=== PATIENT | female | born 1970 | race Caucasian/White ===

== ENCOUNTER 2020-03-14 06:06 | Day surgery (SDC) | payer BC ==
[~2020-03-14] VITALS: Ht 162.6 cm; Wt 90.0 kg
[2020-03-14] MEDS ORDERED: SODIUM CHLORIDE 0.9% 1,000 ML IV SCH (06:30)
[2020-03-14 06:33] VITALS: BP 133/83
[2020-03-14] MEDS ORDERED: LOSA1TAB2 PO (06:53)
[2020-03-14] MEDS ORDERED: METF500T17 PO (06:53)
[2020-03-14] MEDS ORDERED: POTA20TA6 PO (06:53)
[2020-03-14] MEDS ORDERED: ATEN25TA PO (06:53)
[2020-03-14] MEDS ORDERED: PLEASE ENTER ALLERGIES MC SCH (07:00)
[2020-03-14 07:12] LABS: BASOPHILS # (AUTO) 0.04 x10^3/uL (0-0.1); BASOPHILS % (AUTO) 1 % (0-1); EOSINOPHILS % (AUTO) 1 % (1-7); LYMPHOCYTES # (AUTO) 3.01 x10^3/uL (1-3.4); LYMPHOCYTES % (AUTO) 38 % (22-44); MD NO; MEAN CORPUSCULAR HEMOGLOBIN 30.3 pg (27.0-34.8); MEAN CORPUSCULAR HGB CONC 33.2 g/dL (32.4-35.8); MEAN PLATELET VOLUME 8.1 fL (7.4-10.4); MONOCYTES # (AUTO) 0.53 x10^3/uL (0.2-0.8); MONOCYTES % (AUTO) 7 % (2-9); NEUTROPHILS # (AUTO) 4.19 x10^3/uL (1.8-6.8); NEUTROPHILS % (AUTO) 53 % (42-75); PLATELET COUNT 288 x10^3/uL (130-400); RED BLOOD COUNT 5.33 x10^6/uL (3.82-5.3); RED CELL DISTRIBUTION WIDTH 13.6 % (9.6-15.2)
[2020-03-14 07:21] LABS: ALANINE AMINOTRANSFERASE 22 U/L (12-78); ALBUMIN 2.4 g/dL (3.4-5.0); ANION GAP 7 mmol/L (5-15); CHLORIDE 123 mmol/L (98-107); CREATININE 0.24 mg/dL (0.55-1.02)
[2020-03-14 07:24] LABS: ALKALINE PHOSPHATASE 44 U/L (45-117); BILIRUBIN,TOTAL 0.7 mg/dL (0.2-1.0)
[2020-03-14 07:38] LABS: CALCIUM 5.5 mg/dL (8.5-10.1)
[2020-03-14] MEDS ORDERED: LIDOCAINE 1%, 20ML ONE (07:40)
[2020-03-14 08:22] LABS: BASOPHILS # (AUTO) 0.06 x10^3/uL (0-0.1); BASOPHILS % (AUTO) 1 % (0-1); EOSINOPHILS % (AUTO) 1 % (1-7); LYMPHOCYTES # (AUTO) 2.92 x10^3/uL (1-3.4); LYMPHOCYTES % (AUTO) 37 % (22-44); MD NO; MEAN CORPUSCULAR HEMOGLOBIN 30.6 pg (27.0-34.8); MEAN CORPUSCULAR HGB CONC 33.4 g/dL (32.4-35.8); MEAN PLATELET VOLUME 8.1 fL (7.4-10.4); MONOCYTES # (AUTO) 0.58 x10^3/uL (0.2-0.8); MONOCYTES % (AUTO) 7 % (2-9); NEUTROPHILS % (AUTO) 53 % (42-75); PLATELET COUNT 306 x10^3/uL (130-400); RED BLOOD COUNT 4.87 x10^6/uL (3.82-5.3); RED CELL DISTRIBUTION WIDTH 13.3 % (9.6-15.2)
[2020-03-14 08:24] LABS: ALANINE AMINOTRANSFERASE 35 U/L (12-78); ALBUMIN 3.8 g/dL (3.4-5.0); ANION GAP 7 mmol/L (5-15); CALCIUM 9.1 mg/dL (8.5-10.1); CHLORIDE 106 mmol/L (98-107); CREATININE 0.65 mg/dL (0.55-1.02)
[2020-03-14 08:26] LABS: ALKALINE PHOSPHATASE 69 U/L (45-117); BILIRUBIN,TOTAL 1.3 mg/dL (0.2-1.0)
[2020-03-14] MEDS ORDERED: ISOPROTERENOL 0.2MG/ML, 5ML ONE (08:39)
[2020-03-14] MEDS ORDERED: MIDAZOLAM 1 MG/ML, 5ML ONE (08:39)
[2020-03-14] MEDS ORDERED: FENTANYL PF 100 MCG/2ML ONE (08:39)
[2020-03-14] MEDS ORDERED: ADENOSINE 6 MG/2 ML ONE (08:39)
[2020-03-14] MEDS ORDERED: METOPROLOL 1 MG/ML, 5ML ONE ×2 (09:55→09:59)
[2020-03-14] MEDS ORDERED: IBUTILIDE ONE (10:06)
[2020-03-14] MEDS ORDERED: ACETAMINOPHEN 325 MG TABLET ONE (12:20)
[2020-03-14] MEDS ORDERED: ACETAMINOPHEN 325 MG TABLET PO ONE (12:30)
[2020-03-15] MEDS ORDERED: HYDROCHLOROTHIAZIDE 12.5 MG CAPSULE PO SCH (09:00)
[2020-03-15] MEDS ORDERED: LOSARTAN 50MG TABLET PO SCH (09:00)
[2020-03-15] MEDS ORDERED: metFORMIN 500 MG TABLET PO SCH (09:00)
[2020-03-15] MEDS ORDERED: POTASSIUM CHLORIDE 20 MEQ TAB.ER.PRT PO SCH (09:00)
== END 2020-03-14 15:52 | disposition home or self-care (01) ==
LOC: CACL 06:06
PROVIDERS: ATTEND Internal Medicine Cardiovascular Disease
DX: I47.1 Supraventricular tachycardia (principal); I48.0 Paroxysmal atrial fibrillation; I10 Essential (primary) hypertension; Z79.899 Other long term (current) drug therapy
CPT/HCPCS: 36415; 71046; 80053; 85025; 93613; 93621; 93623; 93653; 99156; 99157; C1730; C1894; C2630; J0153; J1742; J2250; J3010